=== PATIENT | male | born 1970 | race Caucasian/White ===

== ENCOUNTER 2018-02-09 09:08 | Observation (INO) | payer OTHER ==
[2018-02-09] VITALS (9 sets, daily range): BP systolic 147–194; BP diastolic 92–112; PULSE 74–85; RESP 16–32; TEMP 98.1–98.4; O2SAT 95–96
[~2018-02-09] VITALS: Ht 162.6 cm; Wt 85.0 kg
[~2018-02-09 09:08] MED LIST: AMBI10TA PO; BUSP10 PO; DEPA500T3 PO; EFFE150C PO; FOLI1 PO; HYDR-2768 PO; HYDR12.56 PO; IRONCAP2 PO; LISI-363 PO; LISI-590 PO; TYLE500T PO
[2018-02-09] MEDS ORDERED: CETI10CH CHEW (09:26)
[2018-02-09] MEDS ORDERED: BUPR100T4 PO (09:26)
[2018-02-09] MEDS ORDERED: TYLE325T PO (09:26)
[2018-02-09] MEDS ORDERED: CHLO25TA2 PO (09:26)
[2018-02-09] MEDS ORDERED: SPIR25TA PO (09:26)
[2018-02-09] MEDS ORDERED: LISI40TA PO (09:26)
[2018-02-09] MEDS ORDERED: SODIUM CHLORIDE 0.9% FLUSH 10 ML FLUSH IVF PRN (09:45)
[2018-02-09 09:59] LABS: AUTOMATED NEUTROPHIL # 5.5 TH/MM3 (1.8-7.7); BASOPHIL # 0.1 TH/MM3 (0-0.2); BASOPHIL % 0.8 % (0.0-2.0); EOSINOPHIL # 0.1 TH/MM3 (0-0.4); EOSINOPHIL % 1.5 % (0.0-4.0); HEMATOCRIT 45.1 % (39.0-51.0); HEMOGLOBIN 15.6 GM/DL (13.0-17.0); LYMPHOCYTE # 2.2 TH/MM3 (1.0-4.8); MEAN CELL VOLUME 80.7 FL (80.0-100.0); MEAN CORPUSCULAR HEMOGLOBIN 27.9 PG (27.0-34.0); MEAN CORPUSCULAR HGB CONC 34.6 % (32.0-36.0); MEAN PLATELET VOLUME 6.6 FL (7.0-11.0); MONO % 6.9 % (0.0-8.0); MONOCYTE # 0.6 TH/MM3 (0-0.9); NEUT % 64.8 % (16.0-70.0); PLATELET COUNT 357 TH/MM3 (150-450); RED BLOOD COUNT 5.59 MIL/MM3 (4.50-5.90); WHITE BLOOD COUNT 8.5 TH/MM3 (4.0-11.0)
--- NOTE | 2018-02-09 10:13 | RADRPT ---
EXAM DATE/TIME: 02/09/2018 09:37 [facility] COMPARISON: No previous studies available for comparison. INDICATIONS : Chest pain. MEDICAL HISTORY : Hiatal hernia. SURGICAL HISTORY : None. ENCOUNTER: Initial ACUITY: 2 days PAIN SCORE: 3/10 LOCATION: Bilateral chest FINDINGS: A single view of the chest demonstrates the lungs to be symmetrically aerated without evidence of mas s, infiltrate or effusion. The cardiomediastinal contours are unremarkable. Osseous structures are intact. CONCLUSION: No acute disease. Vamsi Varela MD FACR on February 09, 2018 at 10:10 Board Certified Radiologist. This report was verified electronically.
[2018-02-09 10:27] LABS: ALBUMIN 3.8 GM/DL (3.4-5.0); ALKALINE PHOSPHATASE 77 U/L (45-117); ALT (GPT) 25 U/L (12-78); AST (GOT) 20 U/L (15-37); BICARBONATE 29.8 MEQ/L (21.0-32.0); BLOOD UREA NITROGEN 11 MG/DL (7-18); CALCIUM 8.5 MG/DL (8.5-10.1); CHLORIDE 104 MEQ/L (98-107); CREATININE 1.01 MG/DL (0.60-1.30); GLOMERULAR FILTRATION RATE 79 ML/MIN (>89); GLUCOSE,RANDOM 99 MG/DL (74-106); SODIUM (NA) 140 MEQ/L (136-145); TOTAL BILIRUBIN ADULT 0.4 MG/DL (0.2-1.0); TOTAL PROTEIN 7.7 GM/DL (6.4-8.2); TROPONIN I LESS THAN 0.02 NG/ML (0.02-0.05)
[2018-02-09] MEDS ORDERED: POTASSIUM CHLORIDE 10 MEQ CONTROLLED RELEASE TAB PO ONE (10:45)
--- NOTE | 2018-02-09 11:04 | PD ---
HPI Chief Complaint: Chest Pain Time Seen by Provider: 09:19 Travel History International Travel<30 days: No Contact w/Intl Traveler<30days: No Traveled to known affect area: No History of Present Illness HPI Patient is a 47-year-old male who comes in complaining of left-sided chest pain. He says it started early this morning. He says he took his blood pressure medication and a baby aspirin without relief. He then went to the MD where he was given nitro, and this improved his symptoms. He is given another dose of nitro by EMS, which she says helped again. He denies radiation of the pain. He denies shortness of breath or nausea. He does have history of hiatal hernia that has been repaired, and cannot tell if the pain is related to his hernia or his heart. Severity is mild to moderate. PFSH Past Medical History Anxiety: Yes Depression: Yes Cardiovascular Problems: Yes Hypertension: Yes Psychiatric: Yes Migraines: Yes Past Surgical History Abdominal Surgery: Yes (H/H) Genitourinary Surgery: Yes Neurologic Surgery: Yes (cyst optic nerve) Social History Alcohol Use: No Tobacco Use: No Substance Use: No Allergies-Medications (Allergen,Severity, Reaction): Coded Allergies: penicillin G (Unverified Allergy, Severe, Nausea/Vomiting, 06/13/17) Reported Meds & Prescriptions Reported Meds & Active Scripts Active Reported Tylenol (Acetaminophen) 325 Mg Tab 1,000 Mg PO Q4H PRN Spironolactone 25 Mg Tab 25 Mg PO DAILY Lisinopril 40 Mg Tab 40 Mg PO DAILY Chlorthalidone 25 Mg Tab 25 Mg PO DAILY Cetirizine (Cetirizine HCl) 10 Mg Chew 10 Mg CHEW DAILY Bupropion HCl 100 Mg Tab 100 Mg PO BID Review of Systems Except as stated in HPI: all other systems reviewed are Neg General / Constitutional: No: Fever, Chills HENT: No: Headaches, Lightheadedness Cardiovascular: Positive: Chest Pain or Discomfort Respiratory: No: Shortness of Breath Gastrointestinal: No: Nausea, Vomiting Genitourinary: No: Dysuria Skin: No Rash, No Change in Pigmentation Neurologic: No: Weakness, Dizziness Physical Exam Narrative GENERAL: Awake and alert, in no acute distress. SKIN: Focused skin assessment warm/dry. No wounds or signs of infection. HEAD: Atraumatic. Normocephalic. EYES: Pupils equal and round. No scleral icterus. ENT: Mucous membranes pink and moist. NECK: Trachea midline. No JVD. CARDIOVASCULAR: Regular rate and rhythm. No murmur appreciated. RESPIRATORY: No accessory muscle use. Clear to auscultation. Breath sounds equal bilaterally. GASTROINTESTINAL: Abdomen soft, non-tender, nondistended. MUSCULOSKELETAL: No obvious deformities. No clubbing. No cyanosis. No edema. NEUROLOGICAL: Awake and alert. No obvious cranial nerve deficits. Motor grossly within normal limits. Normal speech. PSYCHIATRIC: Appropriate mood and affect; insight and judgment normal. Data Data Last Documented VS Vital Signs Date Time Temp Pulse Resp B/P (MAP) Pulse Ox O2 Delivery O2 Flow Rate FiO2 02/09/18:45 79 24 175/105 (128) 95 Room Air 171/106 (127) 02/09/18 09:42 2.00 02/09/18:18 98.4 Orders Orders Ckmb (Isoenzyme) Profile (02/09/18 09:32) Complete Blood Count With Diff (02/09/18:32) Comprehensive Metabolic Panel (02/09/18:32) Prothrombin Time / Inr (Pt) (02/09/18:32) Act Partial Throm Time (Ptt) (02/09/18:32) Troponin I (02/09/18:32) Chest, Single Ap (02/09/18:32) Ecg Monitoring (02/09/18:32) Bilateral Bp Monitoring (02/09/18:32) Iv Access Insert/Monitor (02/09/18:32) Oximetry (02/09/18:32) Oxygen Administration (02/09/18:32) Sodium Chloride 0.9% Flush (Ns Flush) (02/09/18 09:45) CKMB (02/09/18:30) CKMB% (02/09/18:30) Potassium Chloride (Kcl) (02/09/18 10:45) Labs Laboratory Tests Test 02/09/18 09:30 White Blood Count 8.5 TH/MM3 Red Blood Count 5.59 MIL/MM3 Hemoglobin 15.6 GM/DL Hematocrit 45.1 % Mean Corpuscular Volume 80.7 FL Mean Corpuscular Hemoglobin 27.9 PG Mean Corpuscular Hemoglobin Concent 34.6 % Red Cell Distribution Width 14.0 % Platelet Count 357 TH/MM3 Mean Platelet Volume 6.6 FL Neutrophils (%) (Auto) 64.8 % Lymphocytes (%) (Auto) 26.0 % Monocytes (%) (Auto) 6.9 % Eosinophils (%) (Auto) 1.5 % Basophils (%) (Auto) 0.8 % Neutrophils # (Auto) 5.5 TH/MM3 Lymphocytes # (Auto) 2.2 TH/MM3 Monocytes # (Auto) 0.6 TH/MM3 Eosinophils # (Auto) 0.1 TH/MM3 Basophils # (Auto) 0.1 TH/MM3 CBC Comment DIFF FINAL Differential Comment Prothrombin Time 10.0 SEC Prothromb Time International Ratio 1.0 RATIO Activated Partial Thromboplast Time 28.6 SEC Blood Urea Nitrogen 11 MG/DL Creatinine 1.01 MG/DL Random Glucose 99 MG/DL Total Protein 7.7 GM/DL Albumin 3.8 GM/DL Calcium Level 8.5 MG/DL Alkaline Phosphatase 77 U/L Aspartate Amino Transf (AST/SGOT) 20 U/L Alanine Aminotransferase (ALT/SGPT) 25 U/L Total Bilirubin 0.4 MG/DL Sodium Level 140 MEQ/L Potassium Level 3.1 MEQ/L Chloride Level 104 MEQ/L Carbon Dioxide Level 29.8 MEQ/L Anion Gap 6 MEQ/L Estimat Glomerular Filtration Rate 79 ML/MIN Total Creatine Kinase 132 U/L Creatine Kinase MB 0.9 NG/ML Troponin I LESS THAN 0.02 NG/ML MDM Medical Decision Making Medical Screen Exam Complete: Yes Emergency Medical Condition: Yes Medical Record Reviewed: Yes Interpretation(s) ECG shows NSR at 76, no ST elevation or depression. Differential Diagnosis ACS vs NSTEMI vs STEMI vs GERD Narrative Course Patient is a 47 year old male who comes in complaining of chest pain. Exam shows no acute abnormalities. IV established, labs sent, connected to the threat monitoring analyst. Labs show no acute abnormalities. Given aspirin at the MD. CXR shows no acute abnormalities. Last 24 hours Impressions Chest X-Ray 02/09/18 0932 Signed Impressions: Service Date/Time: Friday, February 09, 2018 09:37 - CONCLUSION: No acute disease. Vamsi Varela MD FACR Patient will be placed in the chest pain center for further management. Diagnosis Primary Impression: Chest pain Qualified Codes: R07.9 - Chest pain, unspecified Admitting Information Admitting Physician Requests: Observation Clara Hobson MD Feb 09, 2018 11:04
[2018-02-09] MEDS ORDERED: ONDANSETRON HCL 4 MG/2 ML VIAL IV PUSH PRN (11:15)
[2018-02-09] MEDS ORDERED: NITROGLYCERIN 0.4 MG SL 25 TABS/BTL SL PRN (11:15)
[2018-02-09] MEDS ORDERED: ACETAMINOPHEN 500 MG CPLT PO PRN (11:15)
--- NOTE | 2018-02-09 12:21 | HHI.HP ---
[facility] Chief Complaint Chest pain History of Present Illness 47-year-old male with history of hypertension, chronic migraines, and PTSD presents emergency room for further evaluation of chest pain. Onset 7 AM upon awakening. Location left anterior chest. Characterized as chest pressure. Severity 6/10. No radiation of pain. Duration has been constant, current pain level 1/10. No associated symptoms of nausea, vomiting, dyspnea, or diaphoresis. No known precipitating or relieving factors. Denies similar pain in the past. Drove self from [place] to [facility] for further evaluation. EKG completed, 4 baby aspirin and 1 nitro pill given. Reports bp during this time SBP 200s and DBP 100s. No recent illness, fever, or chills. No known CAD. Review of Systems General: No fatigue,weakness, fever, chills, recent illness, or change in appetite. Has been in his general state of health. HEENT: Chronic daily migraines, current migraine unchanged from "normal migraine." No vision changes, no nasal congestion or drainage, no dysphasia CV: As stated above. Chest pressure improving, currently rated "-1/10." RESP: No SOB, cough, wheeze GI: No nausea, vomiting, bowel changes, diarrhea, constipation, pain, distention , melena, or blood in the stool. 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 No new discomfort, recent injury, or change in ROM NEURO: No difficulty with balance, LOC, motor/sensory deficits PSYCH: History of PTSD, anxiety, depression. No suicidal ideation SKIN: No rashes, no concerning lesions Past Family Social History Allergies: Coded Allergies: penicillin G (Unverified Allergy, Severe, Nausea/Vomiting, 06/13/17) Past Medical History Hypertension, PTSD, chronic migraines Past Surgical History Hiatal hernia SX (2014), Right temporal cyst removed Reported Medications Reported Meds & Active Scripts Active Reported Tylenol (Acetaminophen) 325 Mg Tab 1,000 Mg PO Q4H PRN Spironolactone 25 Mg Tab 25 Mg PO DAILY Lisinopril 40 Mg Tab 40 Mg PO DAILY Chlorthalidone 25 Mg Tab 25 Mg PO DAILY Cetirizine (Cetirizine HCl) 10 Mg Chew 10 Mg CHEW DAILY Bupropion HCl 100 Mg Tab 100 Mg PO BID -quit taking Active Ordered Medications Current Medications Medications (Trade) Dose Ordered Sig/Nicolasa Route Start Time Stop Time Status Last Admin (NS Flush) 2 ml UNSCH PRN IVF 02/09/18 09:45 (NS Flush) 2 ml BID IV FLUSH 02/09/18 21:00 (Tylenol) 500 mg Q4H PRN PO 02/09/18 11:15 (Zofran Inj) 4 mg Q6H PRN IV PUSH 02/09/18 11:15 (Nitrostat Sl) 0.4 mg Q5M PRN SL 02/09/18 11:15 (Aspirin) 325 mg DAILY PO 02/10/18 09:00 Family History Unknown, adopted. Social History No known coronary artery disease, diabetes, or hyperlipidemia. Known hypertension. Lifelong non-smoker. Denies any alcohol or illegal drug use. Disabled . Endorses sedentary lifestyle due to limited mobility left foot. Past cardiac testing No recent stress testing. Routine cardiac exercise testing 2010. Physical Exam Vital Signs Vital Signs Date Time Temp Pulse Resp B/P (MAP) Pulse Ox O2 Delivery O2 Flow Rate FiO2 02/09/18 10:56 74 21 147/95 (112) 96 Room Air 02/09/18 09:45 79 24 175/105 (128) 95 Room Air 171/106 (127) 02/09/18 09:42 Nasal Cannula 2.00 02/09/18 09:42 98 Nasal Cannula 2.00 02/09/18 09:20 81 24 97 02/09/18 09:18 98.4 82 18 167/112 (130) 96 Physical Exam GENERAL: Alert WN, WD, NAD, pleasant, male HEAD: NC, AT EYES: Sclera clear, conjunctiva without injection, pupils equal and round ENT: Mucous membranes pink and moist, no nasal discharge or bleeding NECK: Supple, no masses, trachea midline CV: RRR, without murmur, rub, gallop, no JVD, S1-S2 no S3-S4. RESP: Clear lungs throughout bilateral, no crackles, wheeze, rhonchi, symmetrical chest rise, nonlabored, able to speak in full sentences ABD: Soft, NT, ND, no masses, positive bowel tones EXT: Pulses +2x-4, no dependent edema MS: Normal tone x4 extremities, nontender, no obvious deformities, full range of motion NEURO: CN II through CN XII grossly intact, motor strength 5/5 PSYCH: A+O -3, pleasant affect, appropriate speech, mood, insight and judgment SKIN: Normal turgor, normal texture, no lesions, no rashes, brisk cap refill, even hair distribution Laboratory Laboratory Tests Test 02/09/18 09:30 White Blood Count 8.5 Red Blood Count 5.59 Hemoglobin 15.6 Hematocrit 45.1 Mean Corpuscular Volume 80.7 Mean Corpuscular Hemoglobin 27.9 Mean Corpuscular Hemoglobin Concent 34.6 Red Cell Distribution Width 14.0 Platelet Count 357 Mean Platelet Volume 6.6 Neutrophils (%) (Auto) 64.8 Lymphocytes (%) (Auto) 26.0 Monocytes (%) (Auto) 6.9 Eosinophils (%) (Auto) 1.5 Basophils (%) (Auto) 0.8 Neutrophils # (Auto) 5.5 Lymphocytes # (Auto) 2.2 Monocytes # (Auto) 0.6 Eosinophils # (Auto) 0.1 Basophils # (Auto) 0.1 CBC Comment DIFF FINAL Differential Comment Prothrombin Time 10.0 Prothromb Time International Ratio 1.0 Activated Partial Thromboplast Time 28.6 Blood Urea Nitrogen 11 Creatinine 1.01 Random Glucose 99 Total Protein 7.7 Albumin 3.8 Calcium Level 8.5 Alkaline Phosphatase 77 Aspartate Amino Transf (AST/SGOT) 20 Alanine Aminotransferase (ALT/SGPT) 25 Total Bilirubin 0.4 Sodium Level 140 Potassium Level 3.1 Chloride Level 104 Carbon Dioxide Level 29.8 Anion Gap 6 Estimat Glomerular Filtration Rate 79 Total Creatine Kinase 132 Creatine Kinase MB 0.9 Troponin I LESS THAN 0.02 Result Diagram: 02/09/1892902/09/18929 Imaging Last 48 hours Impressions Chest X-Ray 02/09/18931 Signed Impressions: Service Date/Time: Friday, February 09, 2018 09:37 - CONCLUSION: No acute disease. Vamsi Varela MD FACR Course EKG Normal sinus rhythm, nonspecific st t waves changes Caprini VTE Risk Assessment Caprini VTE Risk Assessment: No/Low Risk (score <= 1) Caprini Risk Assessment Model Point Value = 1 Point Value = 2 Point Value = 3 Point Value = 5 Age 41-60 Minor surgery BMI > 25 kg/m2 Swollen legs Varicose veins or History of unexplained or recurrent spontaneous Oral contraceptives or hormone replacement Sepsis (< 1 month) Serious lung disease, including pneumonia (< 1 month) Abnormal pulmonary function Acute myocardial infarction Congestive heart failure (< 1 month) History of inflammatory bowel disease Medical patient at bed rest Age 61-74 Arthroscopic surgery Major open surgery (> 45 min) Laparoscopic surgery (> 45 min) Malignancy Confined to bed (> 72 hours) Immobilizing plaster cast Central venous access Age >= 75 History of VTE Family history of VTE Factor V Leiden Prothrombin [id number] Lupus anticoagulant Anticardiolipin antibodies Elevated serum homocysteine Heparin-induced thrombocytopenia Other congenital or acquired thrombophilia Stroke (< 1 month) Elective arthroplasty Hip, pelvis, or leg fracture Acute spinal cord injury (< 1 month) Prophylaxis Regimen Total Risk Factor Score Risk Level Prophylaxis Regimen 0-1 Low Early ambulation 2 Moderate Order ONE of the following: *Sequential Compression Device (SCD) *Heparin 5000 units SQ BID 3-4 Higher Order ONE of the following medications: *Heparin 5000 units SQ TID *Enoxaparin/Lovenox 40 mg SQ daily (WT < 150 kg, CrCl > 30 mL/min) *Enoxaparin/Lovenox 30 mg SQ daily (WT < 150 kg, CrCl > 10-29 mL/min) *Enoxaparin/Lovenox 30 mg SQ BID (WT < 150 kg, CrCl > 30 mL/min) AND/OR *Sequential Compression Device (SCD) 5 or more Highest Order ONE of the following medications: *Heparin 5000 units SQ TID (Preferred with Epidurals) *Enoxaparin/Lovenox 40 mg SQ daily (WT < 150 kg, CrCl > 30 mL/min) *Enoxaparin/Lovenox 30 mg SQ daily (WT < 150 kg, CrCl > 10-29 mL/min) *Enoxaparin/Lovenox 30 mg SQ BID (WT < 150 kg, CrCl > 30 mL/min) AND *Sequential Compression Device (SCD) Assessment and Plan Assessment and Plan #1 Atypical chest pain-chest pain center. Rule out with 3 sets of EKGs, cardiac enzymes, monitor on telemetry. Will be seen and evaluated by Dr. Bre De La O. Discussed possible stress testing after being ruled out. May require chemical testing due to chronic left foot pain reducing his activity level. #2 History of hypertension-continue to monitor, patient took his lisinopril, chlorthalidone, and spironolactone this am. #3 Hypokalemia-supplementation given in ER #4 History of PTSD-encouraged him to notify his primary care provider he no longer taking bupropion, keeping close contact with PCP and/or psychiatrist Rose Lei Feb 09, 2018 12:21
[2018-02-09 13:31] LABS: TROPONIN I LESS THAN 0.02 NG/ML (0.02-0.05)
[2018-02-09] MEDS ORDERED: ACETAMINOPHEN 500 MG CPLT PO ONE (15:15)
[2018-02-09] MEDS: amLODIPine BESYLATE 5 MG TAB PO SCH (15:37)
[2018-02-09] MEDS ORDERED: cloNIDine HCL 0.1 MG TAB PO PRN (16:15)
[2018-02-09 16:38] LABS: TROPONIN I LESS THAN 0.02 NG/ML (0.02-0.05)
--- NOTE | 2018-02-09 17:04 | EKG ---
Date Performed: 02/09/2018 Time Performed: 09:17:48 PTAGE: 47 years EKG: Sinus rhythm MODERATE VOLTAGE CRITERIA FOR LVH, CONSIDER NORMAL VARIANT NONSPECIFIC T-WAVE ABNORMALITY BORDERLINE ECG NO PREVIOUS TRACING DOCTOR: Bre De La O Interpretating Date/Time 02/09/2018 17:02:22
--- NOTE | 2018-02-09 17:04 | EKG ---
Date Performed: 02/09/2018 Time Performed: 12:53:53 PTAGE: 47 years EKG: Sinus rhythm VOLTAGE CRITERIA FOR LVH NONSPECIFIC T-WAVE ABNORMALITY ABNORMAL ECG Since PREVIOUS TRACING , no significant change noted PREVIOUS TRACIN02/09/2018 09.17 DOCTOR: Bre De La O Interpretating Date/Time 02/09/2018 17:02:41
[2018-02-09] MEDS: ACETAMINOPHEN 500 MG CPLT PO PRN (20:23)
[2018-02-09] MEDS ORDERED: SODIUM CHLORIDE 0.9% FLUSH 10 ML FLUSH IV FLUSH SCH (21:00)
[2018-02-10 04:09] VITALS: BP 140/88; PULSE 72; RESP 18; TEMP 98.2; O2SAT 95
[2018-02-10] MEDS: ACETAMINOPHEN 500 MG CPLT PO PRN (05:21)
[2018-02-10 07:46] VITALS: PULSE 73
[2018-02-10] MEDS ORDERED: LISINOPRIL 20 MG TAB PO SCH (09:00)
[2018-02-10] MEDS ORDERED: CETIRIZINE HCL 10 MG TAB PO SCH (09:00)
[2018-02-10] MEDS ORDERED: ASPIRIN 325 MG TAB PO SCH (09:00)
[2018-02-10] MEDS ORDERED: REGADENOSON INJ 0.4 MG/5 ML SYR ONE (09:06)
--- NOTE | 2018-02-10 11:06 | RADRPT ---
EXAM DATE/TIME: 02/10/2018 08:55 [facility] COMPARISON: No previous studies available for comparison. INDICATIONS : Chest pain. Angina. DOSE: 25.6 mCi Tc99m Myoview at stress. 8.7 mCi Tc99m Myoview at rest. 0.4 mg Lexiscan STRESS SYMPTOMS: Shortness of breath, facial flush. EJECTION FRACTION: > 70% MEDICAL HISTORY : Hypertension. SURGICAL HISTORY : Hiatal hernia repair. ENCOUNTER: Initial ACUITY: 1 day PAIN SCALE: 1/10 LOCATION: Left chest TECHNIQUE: The patient underwent pharmacologic stress with infusion of prescribed dose. Continuous ECG tracing was monitored during stress. Gated SPECT imaging was performed after stress and conventional SPECT i maging was performed at rest. The examination was performed on a SPECT/CT scanner, both attenuation and non-corrected datasets were reviewed. FINDINGS: DISTRIBUTION: The maximum perfused segment at stress is in the anterior lateral wall. PERFUSION STUDY: The pattern of perfusion at stress is within normal limits. GATED STUDY: There is intact wall motion and thickening without hypokinetic or dyskinetic segments. CONCLUSION: Negative for stress-induced ischemia RISK CATEGORY: Low (<1% Annual Mortality Rate) Vamsi Varela MD FACR on February 10, 2018 at 11:03 Board Certified Radiologist. This report was verified electronically.
--- NOTE | 2018-02-10 11:12 | HHI.DCPOC ---
Discharge Care Plan Diagnosis: (1) Chest pain (2) Hypertension Goals to Promote Your Health * To prevent worsening of your condition and complications * To maintain your health at the optimal level Directions to Meet Your Goals Take your medications as prescribed Follow your dietary instruction Follow activity as directed Keep your appointments as scheduled Take your immunizations and boosters as scheduled If your symptoms worsen call your PCP, if no PCP go to Urgent Care Center or Emergency Room Smoking is Dangerous to Your Health. Avoid second hand smoke Call the 24-hour hour crisis hotline for domestic abuse at Mikey Nuñze Feb 10, 2018 11:12
--- NOTE | 2018-02-10 11:58 | EKG ---
Date Performed: 02/09/2018 Time Performed: 15:45:11 PTAGE: 47 years EKG: Sinus rhythm VOLTAGE CRITERIA FOR LVH NONSPECIFIC ST & T-WAVE ABNORMALITY ABNORMAL ECG PREVIOUS TRACING : 02/09/2018 12.53 Since previous tracing, no significant change noted DOCTOR: Venkat Madrid Interpretating Date/Time 02/10/2018 11:56:57
[2018-02-10 12:00] VITALS: BP 169/108; PULSE 85; RESP 20; TEMP 96.2; O2SAT 97
[2018-02-10] MEDS: amLODIPine BESYLATE 5 MG TAB PO SCH (12:04)
--- NOTE | 2018-02-10 13:46 | TR ---
Date Performed: 02/10/2018 Time Performed: 09:18:57 DOCTOR: Venkat Madrid DRUG LIST: CLINICAL HISTORY: ANGINA REASON FOR TEST: REASON FOR ENDING: OBSERVATION: CONCLUSION: COMMENTS: Lexiscan stress test was performed under standard four minute protocol. Radionuclide was injected one minute prior to ending the test. No electrocardiographic abormalities were present t o suggest ischemia. Nuclear imaging and interpretation are pending.
== END 2018-02-11 17:53 | disposition home or self-care (01) ==
LOC: NEPE 09:08 → NEDA 11:06 → NEPHCDU 11:59
PROVIDERS: ADMIT Internal Medicine Interventional Cardiology; ATTEND Internal Medicine Interventional Cardiology
DX: R07.9 Chest pain, unspecified (principal); I10 Essential (primary) hypertension; R94.31 Abnormal electrocardiogram [ECG] [EKG]; E87.6 Hypokalemia; F43.10 Post-traumatic stress disorder, unspecified
CPT/HCPCS: 71045; 78452; 80053; 82550; 82552; 84484; 85025; 85610; 85730; 93005; 93017; 99285; A9502; G0378; J2785